=== PATIENT | female | born 1985 | race Caucasian/White ===

== ENCOUNTER → 2019-11-09 | Outpatient (CLI) | payer OTHER ==
[~2019-11-09] MED LIST: ACIPHEX 20 MG T20 MG PO; LEVOTHYROXIN0.112 M1 PO; TOPROL XL25 MG PO; XANAX 0.5 MG0.5 MG PO
== END ==
LOC: M.ULTRA 10-30 12:30
PROVIDERS: ATTEND Family Medicine
DX: R22.1 Localized swelling, mass and lump, neck (principal); E03.9 Hypothyroidism, unspecified; E04.9 Nontoxic goiter, unspecified; R13.10 Dysphagia, unspecified

== ENCOUNTER 2021-07-05 21:25 | Emergency (ER) | payer OTHER ==
[~2021-07-05] VITALS: Ht 172.7 cm; Wt 77.1 kg
[2021-07-05 22:26] LABS: ABSOLUTE EOSINOPHILS 0.8 thou/uL (0.0-0.7); ABSOLUTE LYMPHOCYTES 2.7 thou/uL (0.8-5.3); ABSOLUTE NEUTROPHILS 6.2 thou/uL (1.6-8.1); BASOPHILS 0.4 %; EOSINOPHILS 7.7 %; HEMATOCRIT 43.1 % (37.0-47.0); HEMOGLOBIN 14.8 gm/dL (12.0-15.0); LYMPHOCYTES 25.1 %; MCHC 34.3 g/dL (28.0-37.0); MCV 90.4 fL (80.0-100.0); MONOCYTES 9.3 %; MPV 7.4 fl. (7.2-11.1); NUCLEATED RBCS 0 /100WBC; PLATELET COUNT* 266 thou/uL (150-400); POLYS 57.5 %; RBC 4.77 mil/uL (4.20-5.00); WBC 10.8 thou/uL (4.0-11.0)
[2021-07-05 22:31] LABS: CALCIUM 8.3 mg/dL (8.5-10.1); POTASSIUM 3.2 mmol/L (3.5-5.1)
[2021-07-05 22:35] LABS: ALBUMIN 3.9 g/dL (3.4-5.0); TOTAL BILIRUBIN 0.5 mg/dL (<0.1-1.0); TOTAL PROTEIN 7.3 g/dL (6.4-8.2)
[2021-07-06] MEDS ORDERED: HYDROCODON-ACE1 EAC7 PO ×2 (00:16→00:31)
[2021-07-06] MEDS ORDERED: PHENERGAN 25 MG25 M1 PO (00:16)
[2021-07-06] MEDS ORDERED: CARAFATE1 GM PO (00:59)
[2021-07-06] MEDS ORDERED: DICYCLOMINE HCL20 MG PO (00:59)
[2021-07-06 01:07] VITALS: BP 109/56
--- NOTE | 2021-07-06 10:02 | EKG ---
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 07/06/21 1001 41 41 Spencer Ruano MD, [facility] /EPI
== END 2021-07-06 01:05 | disposition home or self-care (01) ==
LOC: M.ERS 21:25
PROVIDERS: Personal Emergency Response Attendant
DX: K85.90 Acute pancreatitis without necrosis or infection, unspecified (principal); R10.13 Epigastric pain; K21.9 Gastro-esophageal reflux disease without esophagitis; Z90.49 Acquired absence of other specified parts of digestive tract; Z98.51 Tubal ligation status; Z98.890 Other specified postprocedural states; Z79.899 Other long term (current) drug therapy; Z88.2 Allergy status to sulfonamides